=== PATIENT | female | born 1990 | race Caucasian/White ===

== ENCOUNTER 2016-03-28 17:11 | Inpatient (IN) | payer OTHER ==
[~2016-03-28] VITALS: Ht 180.3 cm; Wt 88.0 kg
[2016-03-28] MEDS ORDERED: LORAZEPAM 2 MG/ML VIAL ONE (17:19)
[2016-03-28] MEDS ORDERED: BISACODYL 10 MG SUPP RECTAL PRN (19:50)
[2016-03-28] MEDS ORDERED: DEXTROSE 50% SYRINGE 50 ML IV PRN (19:50)
[2016-03-28] MEDS ORDERED: SALINE FLUSH 10 ML FLUSH PRN (19:50)
[2016-03-28] MEDS ORDERED: BISACODYL EC 5 MG TAB PO PRN (19:50)
[2016-03-28] MEDS ORDERED: MAG HYDROX 30 ML UDC PO PRN (19:50)
[2016-03-28] MEDS ORDERED: ACETAMINOPHEN 325 MG TAB PO PRN (19:50)
[2016-03-28] MEDS ORDERED: GLUCAGON 1 MG VIAL IM PRN (19:50)
[2016-03-28] MEDS ORDERED: ALU/MAG/SIM 30 ML UDC PO PRN (19:50)
[2016-03-28] MEDS ORDERED: KEPPRA 500 MG in SOD CHLOR 0.9% INJ 100 ML IV ONE (20:00)
[2016-03-28 21:59] VITALS: Ht 180.3 cm; Wt 88.0 kg
[2016-03-28 22:05] VITALS: BP_SYST 123; RESP 18; TEMP 98.5
[2016-03-28] MEDS: LEVEMIR INSULIN SUBQ SCH (22:19)
[2016-03-28] MEDS: ENOXAPARIN 40 MG/0.4 ML SYR SUBQ SCH (22:20)
[2016-03-28] MEDS: CHOLECALCIFEROL 1,000 UNITS TAB PO SCH (22:20)
[2016-03-28] MEDS: FAMOTIDINE 20 MG TAB PO SCH (22:20)
[2016-03-28] MEDS: SODIUM CHLORIDE 0.9% 1,000 ML IV SCH (22:25)
[2016-03-28] MEDS: SODIUM CHLORIDE 0.9% FLUSH BAG 500 ML IV SCH (22:28)
[2016-03-28] MEDS: SALINE FLUSH 10 ML FLUSH SCH (22:28)
[2016-03-28 23:05] VITALS: BP_SYST 104; RESP 16; TEMP 98.2
[2016-03-29] VITALS (7 sets, daily range): BP systolic 92–108; RESP 16–18; TEMP 97.7–98.7
[2016-03-29] MEDS ORDERED: Flu Vaccine Quadrivalent 60 MCG/0.5 ML IM.VACC ONE (01:40)
[2016-03-29] MEDS: SALINE FLUSH 10 ML FLUSH SCH ×2 (08:00→19:50)
[2016-03-29] MEDS: LEVETIRACETAM INJ 500 MG in SODIUM CHLORIDE 0.9% 100 ML IV SCH ×2 (08:36→19:51)
[2016-03-29] MEDS: FAMOTIDINE 20 MG TAB PO SCH ×2 (08:37→20:55)
[2016-03-29] MEDS: ENOXAPARIN 40 MG/0.4 ML SYR SUBQ SCH (08:37)
[2016-03-29] MEDS: CHOLECALCIFEROL 1,000 UNITS TAB PO SCH (08:37)
[2016-03-29] MEDS: SODIUM CHLORIDE 0.9% 1,000 ML IV SCH (10:33)
[2016-03-29] MEDS ORDERED: MAGNEVIST 20ML IV ONE (13:32)
[2016-03-29] MEDS: LEVEMIR INSULIN SUBQ SCH (20:55)
[2016-03-30 03:32] VITALS: BP_SYST 101; RESP 16; TEMP 98.3
[2016-03-30] MEDS: SODIUM CHLORIDE 0.9% FLUSH BAG 500 ML IV SCH (06:00)
[2016-03-30 08:37] VITALS: BP_SYST 116; RESP 18; TEMP 98.6
[2016-03-30] MEDS: LEVETIRACETAM INJ 500 MG in SODIUM CHLORIDE 0.9% 100 ML IV SCH (08:43)
[2016-03-30] MEDS: ENOXAPARIN 40 MG/0.4 ML SYR SUBQ SCH (08:44)
[2016-03-30] MEDS: FAMOTIDINE 20 MG TAB PO SCH (08:45)
[2016-03-30] MEDS: CHOLECALCIFEROL 1,000 UNITS TAB PO SCH (08:45)
[2016-03-30] MEDS: SALINE FLUSH 10 ML FLUSH SCH (08:45)
[2016-03-30 10:59] VITALS: BP_SYST 116; RESP 18; TEMP 98.6
== END 2016-03-30 14:22 | disposition home or self-care (01) | DRG 101 ==
LOC: ENRESERVDT → ENRESERV → ENRESERVTM → ER 17:11 → ENPENDDIS 19:48 → EMR 19:48 → PCU 21:28
PROVIDERS: ADMIT Internal Medicine; ATTEND Internal Medicine
DX: G40.89 Other seizures (principal); E10.8 Type 1 diabetes mellitus with unspecified complications; F17.210 Nicotine dependence, cigarettes, uncomplicated; Z79.4 Long term (current) use of insulin
CPT/HCPCS: 36415; 70450; 70553; 80048; 80053; 80061; 80307; 81003; 82550; 82947; 83018; 83036; 83735; 84439; 84443; 84703; 85025; 85652; 86038; 86141; 86618; 93005; 94799; 95819; 96365; 96372; 99222; 99232